=== PATIENT | female | born 1965 | race African-American/Black ===

== ENCOUNTER 2019-02-12 16:36 | Emergency (ER) | payer OTHER ==
[~2019-02-12] VITALS: Ht 152.4 cm; Wt 78.9 kg
[2019-02-12 23:07] LABS: Basophils # (auto) 0 uL; Basophils % (auto) 0.7 % (0.0-2.0); Eosinophils # (auto) 0 uL; Eosinophils % (auto) 0.3 % (0.0-7.0); Hematocrit 42.7 % (36.0-46.0); Hemoglobin 14.2 g/dL (12.2-16.2); Lymphocytes # (auto) 0.7 uL; Lymphocytes % (auto) 9.9 % (10.0-50.0); Mean Corpuscular Hemoglobin 28.3 pg (28.0-32.0); Mean Corpuscular Hgb Conc. 33.3 g/dL (32.0-36.0); Mean Corpuscular Volume 84.9 fL (80.0-100.0); Monocytes # (auto) 0.9 uL; Monocytes % (auto) 13.1 % (0.0-12.0); Neutrophils # (auto) 5.5 uL; Nucleated Red Blood Cells % 0.1 %; Platelet Count (auto) 121 10^3/uL (140-450); Red Blood Cells 5.03 10^6/uL (4.0-5.20); White Blood Cell 7.2 10^3/uL (4.4-10.8)
[2019-02-13] MEDS ORDERED: ONDANSETRON HCL 4 MG/2 ML VIAL ONE (01:20)
[2019-02-13] MEDS ORDERED: POTASSIUM CHL 20MEQ/100ML 100 ML IV ONE (01:27)
[2019-02-13] MEDS ORDERED: POTASSIUM CHL 20 Meq TABLET PO ONE (01:27)
[2019-02-13 05:04] LABS: INR 1.02 (0.9-1.15); Partial Thromboplastin Time 25.7 sec (23.78-33.04); Prothrombin Time 10.9 sec (9.27-12.13)
[2019-02-13 07:43] VITALS: BP 145/86
[2019-02-13 09:55] LABS: Sodium 126 mmol/L (136-145)
[2019-02-13 09:59] LABS: Alkaline Phosphatase 93 U/L (45-117); Anion Gap 10 (5-15); BUN/Creatinine Ratio 18.8; Blood Urea Nitrogen 12 mg/dL (7-18); Carbon Dioxide 30 mmol/L (21-32); Chloride 86 mmol/L (98-107); GFR African American 124 mL/min; GFR Non-African American 103 mL/min; Glucose 83 mg/dL (74-106); Potassium 2.6 mmol/L (3.5-5.1)
[2019-02-13 10:00] LABS: Alanine Aminotransferase 52 U/L (13-56); Albumin 3.6 g/dL (3.4-5.0); Aspartate Aminotransferase 65 U/L (15-37); Bilirubin, Total 0.7 mg/dL (0.2-1.0); Calcium 8.7 mg/dL (8.5-10.1); Total Protein 8.4 g/dL (6.4-8.2)
== END 2019-02-13 12:25 | disposition critical access hospital (66) ==
LOC: ER 16:36 → EDBD 16:36 → ER 02-13 12:25
DX: K92.2 Gastrointestinal hemorrhage, unspecified (principal); C50.919 Malignant neoplasm of unspecified site of unspecified female breast
CPT/HCPCS: 36415; 74176; 80053; 83690; 85025; 85610; 85730; 94761; 99285; J2405; J3480; J7030

== ENCOUNTER 2019-07-26 22:33 | Emergency (ER) | payer OTHER ==
[~2019-07-26] VITALS: Ht 167.6 cm; Wt 68.0 kg
[2019-07-26 23:45] LABS: Basophils # (auto) 0.1 uL; Basophils % (auto) 0.9 % (0.0-2.0); Eosinophils # (auto) 0 uL; Eosinophils % (auto) 0.2 % (0.0-7.0); Hematocrit 37.7 % (36.0-46.0); Hemoglobin 12.7 g/dL (12.2-16.2); Lymphocytes # (auto) 0.4 uL; Lymphocytes % (auto) 3.9 % (10.0-50.0); Mean Corpuscular Hemoglobin 29.6 pg (28.0-32.0); Mean Corpuscular Hgb Conc. 33.6 g/dL (32.0-36.0); Monocytes # (auto) 0.3 uL; Monocytes % (auto) 2.9 % (0.0-12.0); Neutrophils # (auto) 8.5 uL; Neutrophils % (auto) 92.1 % (37.0-80.0); Nucleated Red Blood Cells % 0.1 %; Platelet Count (auto) 243 10^3/uL (140-450); Red Blood Cells 4.29 10^6/uL (4.0-5.20); Red Cell Distribution Width 19.8 % (11.8-14.3); White Blood Cell 9.2 10^3/uL (4.4-10.8)
[2019-07-26] MEDS ORDERED: LEVETIRACETAM INJ 1,000 MG in D5W 5% 100 ML IV ONE (23:45)
[2019-07-26] MEDS ORDERED: LORazepam 2MG/ML-1ML VIAL IV ONE (23:45)
[2019-07-27] MEDS ORDERED: LEVETIRACETAM 500 MG/5ML INJ IV ONE (00:01)
[2019-07-27 00:09] LABS: Alanine Aminotransferase 27 U/L (13-56); Albumin 3.6 g/dL (3.4-5.0); Anion Gap 11 (5-15); Aspartate Aminotransferase 59 U/L (15-37); BUN/Creatinine Ratio 8.8; Blood Urea Nitrogen 5 mg/dL (7-18); Carbon Dioxide 23 mmol/L (21-32); Chloride 97 mmol/L (98-107); GFR African American 142 mL/min; GFR Non-African American 117 mL/min; Glucose 124 mg/dL (74-106); Potassium 4.4 mmol/L (3.5-5.1); Sodium 131 mmol/L (136-145)
[2019-07-27 00:14] LABS: Alkaline Phosphatase 73 U/L (45-117); Bilirubin, Total 0.8 mg/dL (0.2-1.0); Total Protein 8.1 g/dL (6.4-8.2)
[2019-07-27] MEDS ORDERED: SODIUM CHLORIDE 0.9% 1,000 ML IV ONE (02:15)
[2019-07-27] MEDS ORDERED: fentaNYL CITRATE 100 MCG/2 ML VL IV ONE (04:00)
[2019-07-27 05:24] LABS: Urine Bacteria NONE SEEN /hpf (None Seen); Urine Blood Negative /uL (Negative); Urine Mucus FEW (None Seen); Urine Specific Gravity 1.008 (1.001-1.035); Urine WBC 2 /hpf (0 - 5)
[2019-07-27] MEDS ORDERED: LORazepam 2MG/ML-1ML VIAL IV ONE (05:30)
[2019-07-27 06:34] VITALS: BP 113/55
== END 2019-07-27 06:43 | disposition short-term general hospital (02) ==
LOC: EDBD 22:33 → ER 22:41
DX: I61.9 Nontraumatic intracerebral hemorrhage, unspecified (principal); E86.0 Dehydration; C50.919 Malignant neoplasm of unspecified site of unspecified female breast
CPT/HCPCS: 36415; 70450; 80053; 81001; 84484; 85025; 93005; 96361; 96374; 96375; 96376; 99285; J1953; J2060; J3010; J7060